=== PATIENT | male | born 1940 | race Caucasian/White ===

== ENCOUNTER 2020-05-22 14:00 | Emergency (ER) | payer OTHER, BC ==
[~2020-05-22] VITALS: Ht 182.9 cm; Wt 79.4 kg
[2020-05-22 17:50] LABS: URINE BILIRUBIN NEGATIVE (Negative); URINE BLOOD 1+ (Negative); URINE CLARITY CLEAR; URINE COLOR YELLOW; URINE GLUCOSE-RANDOM* NEGATIVE (Negative); URINE KETONES NEGATIVE (Negative); URINE LEUKOCYTES-REFLEX NEGATIVE (Negative); URINE NITRITE-REFLEX NEGATIVE (Negative); URINE PROTEIN (DIPSTICK) NEGATIVE (Negative); URINE SPECIFIC GRAVITY 1.015 (1.005-1.035); URINE UROBILINOGEN 0.2 E.U./dl (0.2-1.0)
[2020-05-22 17:51] LABS: ABSOLUTE NEUTROPHILS 5.4 thou/uL (1.4-8.2); BASOPHILS 0.5 % (0.0-2.0); EOSINOPHILS 0.7 % (0.0-3.0); HEMATOCRIT 43.2 % (42.0-52.0); HEMOGLOBIN 15.1 gm/dL (14.0-18.0); LYMPHOCYTES 15.4 % (24.0-44.0); MCH 32.7 pg (26.0-34.0); MCHC 35.1 g/dL (28.0-37.0); MCV 93.3 fL (80.0-100.0); MONOCYTES 11.1 % (1.0-8.0); PLATELET COUNT 281 thou/uL (150-400); POLYS 72.3 % (36.0-66.0); RBC 4.62 mil/uL (4.50-6.00); RDW 13.1 % (10.5-14.5); WBC 7.5 thou/uL (4.0-11.0)
[2020-05-22 18:05] LABS: AMP/METHAMP Negative (Negative); BARBITURATES Negative (Negative); BENZODIAZEPINES Negative (Negative); COCAINE Negative (Negative); METHADONE Negative (Negative); OPIATES Negative (Negative); PCP Negative (Negative)
[2020-05-22 18:05] LABS: ANION GAP 8 mmol/L (7-16); BUN 15 mg/dL (7-18); CHLORIDE 108 mmol/L (98-107); CO2 25 mmol/L (21-32); CREATININE 1.2 mg/dL (0.7-1.3); GLUCOSE 123 mg/dL (74-106); POTASSIUM 3.8 mmol/L (3.5-5.1); SODIUM 141 mmol/L (136-145)
[2020-05-22 18:09] LABS: ALBUMIN 3.6 g/dL (3.4-5.0); SALICYLATE < 2.8 mg/dL (2.8-20.0); SGOT 19 U/L (15-37); SGPT 21 U/L (16-63); TOTAL BILIRUBIN 0.4 mg/dL (0.2-1.0); TOTAL PROTEIN 6.5 g/dL (6.4-8.2)
[2020-05-22 18:14] LABS: BACTERIA-REFLEX 1-9 Few /HPF (None Seen); CASTS None Seen /LPF (None Seen); CRYSTALS None Seen /LPF (None Seen); SQUAMOUS None Seen /LPF (0-3); URINE RBC 0-2 Rare /HPF (0-2); URINE WBC-REFLEX None Seen /HPF (0-5)
[2020-05-22 18:45] VITALS: BP 128/68
[2020-05-23] MEDS ORDERED: NEXIUM20 MG PO (00:21)
[2020-05-23] MEDS ORDERED: ATIVAN0.5 M1 PO (00:21)
[2020-05-23] MEDS ORDERED: QUETIAPINE FUMA25 MG PO (00:22)
[2020-05-23] MEDS ORDERED: ZINC PICOLINAT1 EACH PO (00:23)
[2020-05-23] MEDS ORDERED: QUINAPRIL 20 MG20 MG PO (00:23)
[2020-05-23] MEDS ORDERED: FAMOTIDINE10 MG PO (00:24)
[2020-05-23] MEDS ORDERED: CELEXA 20 MG TA20 MG PO (00:24)
[2020-05-23] MEDS ORDERED: MAG GLYCINATE100 MG PO (00:25)
[2020-05-23] MEDS ORDERED: MELATONIN10 M3 PO (00:26)
--- NOTE | 2020-05-23 07:23 | EKG ---
[place] [address] [address] [facility] [place] [address] ELECTROCARDIOGRAM REPORT Name: JOSIAS MALCOLM [facility] [id number] Admission: 05/22/20 Attend Phys: Discharge: 05/22/20 Date of : 40 Report #: [id number] [facility] ED Test Date: 2020-05-22 Test Time: 16:13:17 Pat Name: JOSIAS MALCOLM Department: Room: Gender: M Moshgiach: UNK : 1940 Requested By: Ritu Phan Order Number: [id number] MD: Kirill Heck Measurements Intervals [place] Rate: 77 P: 58 [place]: 196 QRS: 44 QRSD: 98 T: 6 QT: 386 QTc: 437 Interpretive Statements Sinus rhythm Probable left atrial enlargement Left ventricular hypertrophy Baseline wander in lead(s) III,V1,V2,V5,V6 Compared to ECG 02/11/1996 20:08:00 Left ventricular hypertrophy now present Sinus bradycardia no longer present Incomplete right bundle-branch block no longer present Electronically Signed On 05-23-2020 7:23:16 ARCHERY EQUIPMENT REPAIRER by Kirill Heck [email or web address] <ELECTRONICALLY SIGNED> By: Kirill Heck MD, FACC 05/23/20 0723 1613 1613 Kirill Heck MD, FAC /EPI
== END 2020-05-22 20:45 ==
LOC: ER 14:00
PROVIDERS: Physician Assistant
DX: R45.1 Restlessness and agitation (principal); Z20.828 Contact with and (suspected) exposure to other viral communicable diseases; F03.90 Unspecified dementia, unspecified severity, without behavioral disturbance, psychotic disturbance, mood disturbance, and anxiety

== ENCOUNTER 2020-05-22 14:01 | Inpatient (IN) | payer OTHER, BC ==
[~2020-05-22] VITALS: Ht 182.9 cm; Wt 67.8 kg
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
[2020-05-23] MEDS ORDERED: NEXIUM20 MG PO (00:21)
[2020-05-23] MEDS ORDERED: ATIVAN0.5 M1 PO (00:21)
[2020-05-23] MEDS ORDERED: QUETIAPINE FUMA25 MG PO (00:22)
[2020-05-23] MEDS ORDERED: QUINAPRIL 20 MG20 MG PO (00:23)
[2020-05-23] MEDS ORDERED: ZINC PICOLINAT1 EACH PO (00:23)
[2020-05-23] MEDS ORDERED: FAMOTIDINE10 MG PO (00:24)
[2020-05-23] MEDS ORDERED: CELEXA 20 MG TA20 MG PO (00:24)
[2020-05-23] MEDS ORDERED: MAG GLYCINATE100 MG PO (00:25)
[2020-05-23] MEDS ORDERED: MELATONIN10 M3 PO (00:26)
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
--- NOTE | 2020-05-23 03:34 | NUR ---
PATIENT BECAME AGITATED SITTING IN DINING ROOM CHAIR. HE BEGAN TRYING TO GET OUT OF CHAIR AND WAS UNSTABLE DUE TO EARLIER PRN MEDS. WHEN OFFICE SERVICES REPRESENTATIVE AND NURSE TRIED TO HELP HIM GET UP OUT OF CHAIR HE BEGAN HITTING AND PUNCHING AND YELLING. PT RECIEVED A SKIN TEAR ON BACK OF RIGHT HAND FROM HITTING HIS CHAIR AND OFFICE SERVICES REPRESENTATIVE WHILE COMBATIVE. LINDA ANGELO NOTIFIED AND ORDER GIVEN FOR HALDOL 5MG IM STAT. THIS WAS GIVEN IN HIS RIGHT DELTOID WITHOUT INCIDENT. PATIENT WAS TAKEN TO BATHROOM BEFORE INJECTION AND WHEN BECOMING AGITATED BUT DID NOT VOID. PATIENT'S RIGHT HAND WAS CLEANED WITH STERILE WATER AND STERI STRIPS AND DRESSING APPLIED. PATIENT IS SITTING AT A TABLE NOW AND IS CALM. WILL CONTINUE TO MONITOR.
[2020-05-23 04:24] VITALS: BP 155/88
[2020-05-23 09:13] VITALS: BP 131/75
--- NOTE | 2020-05-23 15:13 | NUR ---
[facility]ALLY [facility]/REGUALR-VS WNL-AWAKENS EASILY TO VERBAL STIMULI,COMMANDS BUT QUICKLY FALLS BACK TO SLEEP-BREAKFAST AND AM MEDS HELD D/T SEDATION. AT APPROX 1230 GOT UP OUT OF GERICHAIR AND STARTED PACING RAPIDLY IN HALLWAYS-DID STOP BRIEFLY AND ALLOWED THIS NURSE TO PUT ON HIS SLIPPERS AND COMPLETE PHYSICAL ASSESSMENT BEFORE RESUMING PACING AGAIN.DID SIT FOR 5-10 MINUTES WITH COAXING AND QUEING TO EAT 2-3 BITES OF SANDWHICH PROVIDED AND BAG OF CHIPS-WILL OCCASSIONAL OFFERS SOME SPONTANEOUS VERBALIZATION BUT SPEECH IS MUMBLED AND SOFT-DIFFICULT TO UNDERSTAND-
[2020-05-23 20:53] VITALS: BP 115/88
[2020-05-24 09:59] VITALS: BP 128/73
[2020-05-24 10:06] VITALS: BP 128/73
--- NOTE | 2020-05-24 11:21 | NUR ---
ACCEPTED CARE OF PATIENT FROM 7P-7AM SHIFT. PT IS UP DRESSED AND WALKING SLOWLY PACING ABOUT UNIT. IS CONF TO TIME AND PLACE,WANDERING INTO ROOMS. IS EASILY REDIRECTABLE. IS ABLE TO FEED SELF AND TAKES MEDS WHOLE.NO COMBATIVE BEHAVIORS NOTED THIS AM. DENIES PAIN.PT ATTENDS AM GROUPS.
--- NOTE | 2020-05-24 17:08 | NUR ---
SW was able to speak with Pt's / DPOA, Stefanie Jennifer [phone], to complete the psychosocial assessment.
--- NOTE | 2020-05-24 17:56 | NUR ---
1700 PT HAS PACED SLOWLY MOST OF DAY. IS HARD FOR PATIENT TO SET EVEN TO EAT. PICKS AT FOOD. HAS NOT SLEPT TODAY.
[2020-05-24 20:43] VITALS: BP 121/66
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
[2020-05-25 19:22] VITALS: BP 108/65
--- NOTE | 2020-05-26 05:58 | NUR ---
ASSUMED PT'S CARE THIS PM SHIFT. ALERT AND ORIENTED TO SELF. PT WAS CALM AND COOPERATIVE WITH CARE. NO AGITATION OR AGGRESSION NOTED. PT TOOK MEDS PER EMAR. PT SLEPTS MOST OF SHIFT. DID GET UP ONE TIME IN THE MIDDLE OF THE NIGHT BUT WAS ABLE TO GET BACK IN BED WITH HELP OF NURSING. PT CONTINUES TO SLEEP IN HIS ROOM. WILL CONTINUE TO MONITOR.
--- NOTE | 2020-05-26 08:49 | NUR ---
SW sent pt updates to [facility]. SW team will continue to follow pt during his stay on this unit.
[2020-05-26 09:11] VITALS: BP 119/77
--- NOTE | 2020-05-26 11:48 | NUR ---
PT CARE ASSUMED AT 0700. A&O TO SELF. WITH CONFUSION. NONE NOTED AT THIS MOMENT. DNR. TOOK ALL MEDS WITH NO ISSUES. STOOL SAMPLE NEEDED. CALLED FOR UPDATE. PT CONTINUES TO WANDER THE HALLS AND WALKS INTO OTHER PATIENT ROOMS. EASILY REDIRECTED. WILL CONTINUE TO MONITOR.
--- NOTE | 2020-05-26 19:51 | NUR ---
ASSUMED CARE ON 05/26/20 @ 1900, SEATED IN THE DAY ROOM. TOOK OFF SHIRT AND SOCKS, ALLOWED HIMSELF TO BE REDRESSED, HIS SKIN TEAR ON THE RIGHT HAND WAS BLEEDING SLIGHTLY, AND HE ALLOWED IT TO BE CLEANED AND REDRESSED. HRRR, LUNGS CTA WITH DEEP CLEAR RESPIRATIONS BILAT, ABD N X 4Q. AMBULATING IN THE DAY ROOM WITHOUT USE OF WALKER.
[2020-05-26 20:22] VITALS: BP 135/90
[2020-05-26 22:00] VITALS: BP 135/90
[2020-05-27 07:50] VITALS: BP 127/77
[2020-05-27 11:57] VITALS: BP 127/77
--- NOTE | 2020-05-27 12:08 | NUR ---
ASSUMED CARE AT 0700 THIS MORNING. PT. IN HIS ROOM. HE IS UP AMBULATING. HE CAME ONTO THE UNIT AND WAS EXIT SEEKING. HE IS NOT REAL REDIRECTABLE. HE IS NOT A GOOD HISTORIAN AND COULD TELL ME WHEN HIS LAST BM WAS. HE TOOK HIS MORNING MEDICATIONS WITHOUT PROLEMS. HE WAS COOPERATIVE WITH MORNING ASSESSMENT. LUNGS CTA, ABDOMEN SOFT AND POSITIVE BOWEL SOUNDS X 4.
[2020-05-27 20:00] VITALS: BP 128/76
[2020-05-27 20:09] VITALS: BP 128/76
--- NOTE | 2020-05-28 00:58 | NUR ---
PATIENT HAS BEEN HAPPY TONIGHT AND PACING ALOT. HE HAS APPROACHED STAFF AND ATTEMPTED CONVERSATIONS. PATIENT PACING MORE TOWARDS BED TIME AND UNABLE TO SIT STILL FOR LONG. OLANZAPINE 5MG IM GIVEN IN LEFT DELTOID. PATIENT STATES HE IS TIRED BUT HAVE BEEN UNSUCCESSFUL OF KEEPING HIM IN RECLINER AND BED FOR MORE THAN 15 MINUTES AT A TIME. PATIENT HAS BEEN RELAXED TONIGHT BUT BECOMING MORE AGITATED EVENING WEARS ON AND PATIENT GETTING SLEEPIER. DID GET PATIENT TO DRINK 24O CC OF WATER BUT WOULD NOT DRINK PAST THAT. PATIENT HAS DRESSING ON RIGHT HAND FROM OLD SKIN TEAR. IT IS DRY AND INTACT. PATIENT DENIES PAIN. ABDOMEN SOFT AND NON TENDER WITH ACTIVE BOWEL SOUNDS. LUNGS CTA BILATERALLY. HEART S1S2 HEARD. CONTINUING TO MONITOR.
--- NOTE | 2020-05-28 02:04 | NUR ---
PATIENT STILL AGITATED AFTER OLANZAPINE INJECTION. PALPATED BLADDER AND WITH SOME DISTENTION THIS TIME. BLADDER SCANNED PATIENT HE BATTLED ME. 647CC SCANNED. CALLED AND RECEIVED ORDER TO STRAIGHT CATH ONE TIME BY LINDA MONTEZ. WITH 4 PEOPLE WAS ABLE TO CALM PATIENT DOWN ENOUGH TO CATH. OUTPUT 750CC. CALLED AND RECEIVED ORDER TO SEND URINE TO LAB FOR UA AND GENERAL SURGERY PHYSICIAN ASSISTANT IF INDICATED. SPECIMAN COLLECTED AT 0145 AND TAKEN TO LAB AT O155. LINDA MONTEZ IS REVIEWING CHART AND MAY DECIDE TO START PT ON FLOMAX FOR URINE RETENTION. PATIENT SHOWED MUCH RELIEF AND RELAXATION AFTER STRAIGHT CATHING THE LARGE VOLUME OF URINE. PATIENT PLACED BACK IN DAVON CHAIR AND SITTING BY IMPLEMENTATION COORDINATOR IN DINING ROOM WITH LAP LOVELY IN PLACE AND FASTENED IN THE FRON. PATIENT IS STILL RESTLESS IN CHAIR BUT CALM. CONTINUING TO MONITOR.
[2020-05-28 03:35] LABS: URINE BILIRUBIN NEGATIVE (Negative); URINE BLOOD NEGATIVE (Negative); URINE CLARITY CLEAR; URINE COLOR YELLOW; URINE GLUCOSE-RANDOM* NEGATIVE (Negative); URINE KETONES NEGATIVE (Negative); URINE LEUKOCYTES-REFLEX NEGATIVE (Negative); URINE NITRITE-REFLEX NEGATIVE (Negative); URINE PROTEIN (DIPSTICK) NEGATIVE (Negative); URINE SPECIFIC GRAVITY >= 1.030 (1.005-1.035); URINE UROBILINOGEN 0.2 E.U./dl (0.2-1.0)
--- NOTE | 2020-05-28 05:27 | NUR ---
PATIENT DID CALM A COUPLE OF HOURS AFTER INJECTION. HE SLEPT IN DAVON CHAIR IN DINING ROOM FOR A FEW HOURS. PT SITTING QUIETLY NOW. STILL FIDGETY BUT NO NEGATIVE BEHAVIORS.
[2020-05-28 07:55] VITALS: BP 99/52
--- NOTE | 2020-05-28 10:24 | NUR ---
Care assumed of patient at 0715: Patient resting in baljit chair at start of shift. Pleasantly confused. Alert and oriented to person only. Flat affect, calm and cooperative. Declined breakfast this AM. Took AM medication crushed without difficulty. Denies pain and discomfort. No behaviors indicative of SI/HI/AH/VH. Denies depression/anxiety. No agitation or combative behaviors observed thus far this AM.
--- NOTE | 2020-05-28 11:34 | NUR ---
Phone call from the patient's . She shared that Pepe has been a devote [employer] all of his life. I asssured her I would get him listed as Congregational and alert our Porter Bath.
--- NOTE | 2020-05-28 12:58 | EKG ---
[address] [place] [address] ELECTROCARDIOGRAM REPORT Name: JOSIAS MALCOLM Room #: 528A-A ADM IN M.R.#: [id number] Admission: 05/22/20 Attend Phys: Omer Millan DO Discharge: Date of : 40 Report #: [id number] [facility] Test Date: 2020-05-28 Test Time: 12:25:12 Pat Name: JOSIAS MALCOLM Department: Room: 528A A Gender: M Embedded Linux Engineer: Светлана GARAY : 1940 Requested By: Xochitl Olmos Order Number: [id number] MD: Kirill Heck Measurements Intervals [place] Rate: 51 P: 31 [place]: 198 QRS: -39 QRSD: 93 T: -28 QT: 462 QTc: 426 Interpretive Statements Sinus rhythm Atrial premature complex Consider left atrial enlargement Left axis deviation Compared to ECG 05/22/2020 16:13:17 Atrial premature complex(es) now present Left-axis deviation now present Left ventricular hypertrophy no longer present Electronically Signed On 05-28-2020 12:58:14 PICTURE ENGRAVER by Kirill Heck [email or web address] <ELECTRONICALLY SIGNED> By: Kirill Heck MD, FACC 05/28/20 1258 1225 1225 Kirill Heck MD, FACC /EPI
[2020-05-28 14:39] LABS: ABSOLUTE NEUTROPHILS 5.2 thou/uL (1.4-8.2); BASOPHILS 0.4 % (0.0-2.0); EOSINOPHILS 0.9 % (0.0-3.0); HEMATOCRIT 43.4 % (42.0-52.0); HEMOGLOBIN 14.5 gm/dL (14.0-18.0); LYMPHOCYTES 16.7 % (24.0-44.0); MCH 31.6 pg (26.0-34.0); MCHC 33.4 g/dL (28.0-37.0); MCV 94.6 fL (80.0-100.0); MONOCYTES 9.8 % (1.0-8.0); PLATELET COUNT 274 thou/uL (150-400); POLYS 72.2 % (36.0-66.0); RBC 4.59 mil/uL (4.50-6.00); RDW 13.5 % (10.5-14.5); WBC 7.2 thou/uL (4.0-11.0)
[2020-05-28 14:49] LABS: CALCIUM 9.5 mg/dL (8.5-10.1); MAGNESIUM 2.2 mg/dL (1.8-2.4); POTASSIUM 3.7 mmol/L (3.5-5.1)
[2020-05-28 19:27] VITALS: BP 99/56
[2020-05-28 20:00] VITALS: BP 99/56
--- NOTE | 2020-05-28 21:48 | NUR ---
PATIENT WAS SITTING IN DAVON CHAIR WHEN I CAME ON DUTY AT 1900. PATIENT GETTING COMBATIVE WITH STAFF TRYING TO TAKE HIS VITALS. PATIENT RESTLESS AND IRRITABLE. PATIENT CALMED AFTER VITALS TAKEN BUT RESTLESS. GOT PATIENT UP AND WALKED HIM IN THE HALLWAY. PATIENT IS LEANING TO THE RIGHT WHEN HE WALKS. WAS UNSUCCESSFUL IN TRYING TO TOILET THE PATIENT. PATIENT RESPONDING TO PAIN IN LEFT HAND WRIST AREA WHEN HAND IS PULLED ON OR HELD ON TO. TYLENOL 650MG PO GIVEN FOR PAIN 5/ 10. ATIVAN 1MG PRN GIVEN TO PATIENT AND SAT BACK IN DAVON CHAIR WITH LAP LOVELY COMFORTABLY SECURED AND FASTENED IN THE FRONT. PATIENT HAD ICE CREAM AND VISHNU CRACKERS FOR SNACK TONIGHT AND DID DRINK 240CC WATER. PATIENT SITTING QUIETLY IN DINING ROOM NEXT TO COLOR TESTER. HIS CALLED TO CHECK ON PATIENT STATUS. PATIENT IN LOCKED GERICHAIR WITH CHAIRALARM ON. CONTINUING TO MONITOR.
--- NOTE | 2020-05-29 04:44 | NUR ---
PATIENT WAS ASSISTED TO BED AROUND 1230 AM AND HAS BEEN SLEEPING SINCE. BED IN LOW POSITION AND BED ALARM IS ON. NORMAL RESPIRATIONS AND UNLABORED, EVEN BREATHS. ROUTINE ROUNDS TO ASSESS SAFETY AND STATUS OF PATIENT. CONTINUING TO MONITOR.
[2020-05-29 07:30] VITALS: BP 121/71
--- NOTE | 2020-05-29 08:39 | NUR ---
RT Progress Note- Remi has been minimally active in the milieu and recreation groups. He is usually seen seated in baljit chair, often asleep. However, when patient is awake and alert he is difficult to engage and wanders about unit. Remi has not shown aggression during interactions with recreation staff. ACCOUNTING PROFESSIONAL will continue to provide opportunities for engagement while patient is on unit.
[2020-05-29 10:00] VITALS: BP 99/56
--- NOTE | 2020-05-29 19:30 | NUR ---
ASSUMED PATIENT CARE AT 0700. PATIENT WAS RESTING ON THE GERICHAIR IN THE DAY ROOM. PATIENT REFUSED BREAKFAST. PATIENT WAS CALM WITH MEDICATION. AFTER BREAKFAST STAFF REPORTED THAT PATIENT WAS AGGRESSIVE TO THEM AND WAS HITTING. WRITTER SAT AND OBSERVED PATIENT FOR 15 MINUTES BY REDUCING STIMULATION WELL, PATIENT WAS CALM DURING THE OBSERVATION. FEW MINUTES LATER PATIENT WAS GETTING OUT OF HIS CHAIR. PATIENT GOT PRN OLANZAPINE AT 1155 ON DELTOID MUSCLE . PATIENT WAS ALERT AND ORIENTED X1 TODAY. AFTER DINNER PATIENT BECAME AGGRESSIVE WITH STAFF, HE WAS HITTING AND SCRATCHING STAFF WITH HIS FINGER NAILS. PATIENT GOT PRN OLANZAPINE AT 1814 ON HIS VASTUS LATERALIS. PATIENT WAS PUT IN BED, WHICH HE TRIED TO GET OUT OF BED. PATIENT GAIT WAS VERY UNSTEADY, HE WAS ASSISTED BY STAFFS TO THE GERICHAIR. PATIENT WAS TRANSPORTED TO THE DAY ROOM. WE ARE CONTINUING TO MONITOR PATIENT. post aggression patient have skin tear on his right arm.
[2020-05-29 19:35] VITALS: BP 127/75
--- NOTE | 2020-05-29 20:14 | NUR ---
Alert and orientated to name only. No speech suggestive of SI/HI. Spent most of day in gerichair with lapbuddy in place. Breath sounds clear and shallow, no s/o resp distress. Reg HR auscultated. Color pink with brisk capillary refill and palpable peripheral pulses. Olanzapine 2.5mg given IM X2. Very combative at approximately 1815, currently sitting in chair quiet but awake. Multiple scabs and bruises over arms.
--- NOTE | 2020-05-30 02:52 | NUR ---
Assumed care on 05/29/20 @ 19:15. Seated in the day room in a baljit chair. Seemed anxious and fiddling with his lap rony, but did not seem to be able to understand how to unfasten it. Allowed his assessment to be done, HRRR Lungs CTA but with normal respirations, did not understand request to breath deeply. ABD N x 4Q. Took meds crushed in yogart. Lorazepam 1mg provided for anxiety, Trazadone 50mg and Melatonin 5mg provided for insomnia, Tylenol 650mg provided for general pain. called @ 2300 and spoke for about 30 minutes asking for update. Medications explained and low and slow medication explained. Asks to have Dr. Millan call and speak to her after he sees patient today. Sleeping at this time, bed in low position, bed alarm set. Rounding as per unit protocol.
[2020-05-30 04:16] VITALS: BP 127/75
[2020-05-30 08:15] VITALS: BP 142/88
[2020-05-30 09:08] VITALS: BP 142/88
[2020-05-30 19:11] VITALS: BP 122/74
--- NOTE | 2020-05-30 19:11 | NUR ---
ASSUMED PATIENT CARE AT 0730. PATIENT WAS IN THE DAY ROOM, RESTING IN THE GERICHAIR. PATIENT VITAL SIGNS WERE STABLE, HE WAS ALERT AND ORIENTED X1. PATIENT AMBULATE WITH AN UNSTEADY GAIT. PATIENT ATE ALL MEALS. PATIENT WAS UNCOOPERATIVE WITH MEDICATION AND CARE. PATIENT WAS COMBATIVE, AGGRESSIVE, HE WAS HITTING AND SCRATCHING STAFF. PATIENT GOT OLANZAPINE 2.5MG AT 1306. PATIENT CONTINUED TO BE AGGRESSIVE TOWARDS STAFF. DR FITZPATRICK WAS CALLED AND SHE ORDERED DIPHENHYDRAMINE 25MG TAB. AT 1506 PATIENT WAS GIVEN DIPHENHYDRAMINE 25MG TAB. AFTER DINNER PATIENT CONTINUED WITH COMBATIVENESS. HE SCRATCHED A STAFF ON HER ARM AND IT REULTED TO A LITTLE BRUISE. PATIENT WAS GIVEN ATIVAN, LORAZEPAM 1MG AT 1724.
--- NOTE | 2020-05-31 05:31 | NUR ---
Assumed care of pt @ 1900. Pt calm et cooperative most of shift. Took medications crushed in pudding without difficulty. Ambulates with assistance of gerichair. VSWNL. Health assessment with no abnormalities noted at present time. Unable to assess SI/HI/AVH due to cognitive deficit but pt does not demonstrate any signs or symptoms of acute emotional distress at present time. Pt became agitated, restless in chair, scratching and kicking at staff when attempting cares. Pt was given Olanzapine 2.5mg IM at 2212. Medication was effective in calming pt so that he could rest. Currently resting in [facility] in dayroom with eyes closed. Will continue to monitor per unit protocol.
[2020-05-31 09:48] VITALS: BP 132/67
[2020-05-31 10:42] VITALS: BP 132/67
--- NOTE | 2020-05-31 10:50 | NUR ---
ASSUMED CARE AT 0700 THIS MORNING. PT. WAS ASLEEP IN A RECLINGING. PT. WAS NEEDING CLEANED UP. HE WAS TAKEN TO HIS ROOM AND CLEANED UP. A BRIEF AND PANTS WERE PUT ON THE PT. HE BECAME COMBATIVE JUST A BIT WHILE CLEANING HIM. HE BECAME COOPERATIVE AND WAS HELPFUL. HE HAS BEEN ASLEEP MOST OF THE MORNING. HE WAS WAKEN UP FOR BREAKFAST, BUT HE STARTED YELLING, FLAILING HIS ARMS AND REFUSED TO EAT. HE DID TAKE HIS MORNING MEDICATIONS CRUSHED IN APPLESAUCE WITH MUCH DIFFICULLTY AND EFFORT. HE DID EVENTUALLY TAKE THE MEDICATIONS.
[2020-05-31 16:08] LABS: CALCIUM 9.3 mg/dL (8.5-10.1); POTASSIUM 3.6 mmol/L (3.5-5.1)
[2020-05-31 20:29] VITALS: BP 123/57
--- NOTE | 2020-06-01 05:49 | NUR ---
Assumed care of pt @ 1900. Pt calm et cooperative this shift. Took medications crushed in pudding without difficulty. Ambulates with assistance of gerichair. VSWNL. Health assessment with no abnormalities noted at present time. Unable to assess SI/HI/AVH due to cognitive deficit but pt does not demonstrate any signs or symptoms of acute emotional distress at present time. [facility] with eyes closed. Will continue to monitor per unit protocol.
[2020-06-01 06:08] LABS: ALBUMIN 3.2 g/dL (3.4-5.0); CALCIUM 9.1 mg/dL (8.5-10.1); CREATININE 0.8 mg/dL (0.7-1.3); POTASSIUM 3.7 mmol/L (3.5-5.1); TOTAL BILIRUBIN 0.8 mg/dL (0.2-1.0)
[2020-06-01 07:30] VITALS: BP 107/67
[2020-06-01 10:00] VITALS: BP 107/67
--- NOTE | 2020-06-01 17:44 | NUR ---
ASSUMED PATIENT CARE AT 0700. PATIENT WAS IN THE DAY ROOM SLEEPING. PATIENT WAS ALERT AND ORIENTED X1.PATIENT VITAL SIGNS WERE STABLE HE WAS DROWSY MOST PART OF DAY. PATIENT WAS UNABLE TO TAKE HIS MEDICATION BECAUSE HE WAS SLEEPING. EVERY ATTEMPT TO GET HIM TO EAT AND TAKE HIS MEDICATION WAS ABORTIVE. AT NOON PATIENT WAS UNABLE TO EAT LUNCH HE WAS SLEEPING. PATIENT WOKE AT 1400, HE HAD A TEMPERATURE OF 99.3 AND HE COUGHED A LITTLE. PATIENT CONDITION WAS REPORTED TO DR AFITH, SHE INSTRUCTED WE KEEP MONITORING PATIENT. AT 1430, PATIENT DRANK WATER AND ENSURE (FOOD SUPPLEMENT). PATIENT WAS COOPERATIVE WITH CARE. FROM 1410 PATIENT HAVE NOT COUGHED AND HIS TEMPERATURE WAS TAKEN AT 1530 AND IT WAS 98.2. AT 1700 PATIENT REFUSED DINNER, HE DRANK WATER AND ENSURE. WILL KEEP MONITORING PATIENT. PATIENT SLEPT ALL DAY
[2020-06-01 19:20] VITALS: BP 115/78
[2020-06-02 07:10] VITALS: BP 127/78
[2020-06-02 10:21] VITALS: BP 127/78
--- NOTE | 2020-06-02 13:45 | NUR ---
SW sent updates to [facility]. SW team will continue to follow.
--- NOTE | 2020-06-02 16:00 | NUR ---
Assumed patient care at 0700. Patient was alert and oriented to self. patient vitals signs were stable. Patient rested in the gerichair most of the day. patient ate 100% of breakfast and 85% of lunch. patient got assistance with feeding. patient was combative with care and medication administration. patient continously takes his cloths of and attempts to put them back on. patient took his medication crushed with yogurt. there were no signs and symptoms of SI/HI noted patient is currently resting on the gerichair.
[2020-06-02 19:10] VITALS: BP 127/71
--- NOTE | 2020-06-03 00:28 | NUR ---
Assumed care on 06/02/20 @ 19:15, seated in baljit chair in day room. Restless and repeatedly disrobes. Redressed and soon disrobes again. Scheduled meds and prn meds given @ 20:30. Incontinent of urine. Wets in brief, have not been able to collect a urine sample. Scabs noted to lower extremities, dressings covering skin tears on forearms c/d/i. Able to give first name A&Ox1, unable to answer mental health assessment questions. Cooperated with physical assessment, VSS, HRRR, Lungs CTA ABD N x 4Q. Last reported BM 05/31/20. Took meds crushed in yogart, however refused apple juice. Will continue to round as per unit protocol for safety and comfort.
[2020-06-03 00:36] VITALS: BP 127/71
[2020-06-03 05:53] LABS: HEMATOCRIT 43.5 % (42.0-52.0); HEMOGLOBIN 14.4 gm/dL (14.0-18.0); MCH 31.7 pg (26.0-34.0); MCHC 33.2 g/dL (28.0-37.0); MCV 95.7 fL (80.0-100.0); RBC 4.55 mil/uL (4.50-6.00); RDW 13.7 % (10.5-14.5)
[2020-06-03 06:12] LABS: ALBUMIN 2.8 g/dL (3.4-5.0); CALCIUM 9.3 mg/dL (8.5-10.1); CREATININE 0.8 mg/dL (0.7-1.3); POTASSIUM 3.7 mmol/L (3.5-5.1); TOTAL BILIRUBIN 0.7 mg/dL (0.2-1.0); TOTAL PROTEIN 6.2 g/dL (6.4-8.2)
[2020-06-03 07:35] VITALS: BP 144/81
--- NOTE | 2020-06-03 09:19 | NUR ---
Care assumed of patient at 0715: Patient seated in baljit chair at start of shift. Alert and oriented to person only. Denies SI/HI/AH/VH. Pleasantly confused. Restless at times. Denies depression and anxiety. Incontinent of bladder. Required max assist x2 for gladys care and linen change due to poor balance while standing. Denies pain and discomfort. Fed breakfast by staff. Was able to report what he wanted to eat and when he was done. Took AM meds crushed without difficulty. Seated quietly in dayroom at this time.
[2020-06-03 15:04] LABS: URINE BILIRUBIN NEGATIVE (Negative); URINE BLOOD 2+ (Negative); URINE COLOR YELLOW; URINE GLUCOSE-RANDOM* NEGATIVE (Negative); URINE KETONES 1+ (Negative); URINE LEUKOCYTES TRACE (Negative); URINE NITRITE POSITIVE (Negative); URINE PROTEIN (DIPSTICK) 1+ (Negative); URINE SPECIFIC GRAVITY 1.025 (1.005-1.035)
[2020-06-03 15:06] LABS: URINE CLARITY HAZY
[2020-06-03 15:13] LABS: BACTERIA >30 Many /HPF (None Seen); SQUAMOUS None Seen /LPF (0-3); URINE RBC 3-10 Few /HPF (0-2); URINE WBC 6-15 Few /HPF (0-5)
[2020-06-03 15:14] LABS: CASTS None Seen /LPF (None Seen); CRYSTALS None Seen /LPF (None Seen)
--- NOTE | 2020-06-03 16:13 | NUR ---
Updates faxed to [facility] [phone]
[2020-06-03 19:37] VITALS: BP 93/72
[2020-06-03 21:42] VITALS: BP 93/72
--- NOTE | 2020-06-04 01:49 | NUR ---
PATIENT HAS BEEN UP IN MAIN DINING ROOM IN A DAVON CHAIR SINCE ASSUMED CARE AT 1900. INCONTINENCE CHECKS DONE ON REGULAR BASIS. PATIENT HEAD AND BODY LEANING TO THE RIGHT. PILLOW PLACED SEVERAL TIMES UNDER HEAD BUT DOES NOT STAY. PATIENT APPEARS TO BE SLEEPING MOST OF NIGHT BUT DOES AWAKEN FOR SHORT SPURTS AND IS RESTLESS. PATIENT NOT STAYING IN BED SO IS RECLINING IN DAVON CHAIR. WHEELS LOCKED AND CHAIR ALARM IN PLACE. PATIENT HAS SKIN TEARS ON BILATERAL ARMS AND WAS REPORTED THAT HE WAS BITING HIS ARMS AND HIS RIGHT KNEE YESTERDAY WHEN COMBATIVE WITH INCONTINENCE CARES. PATIENT TOOK TRAZADONE AT HS WITH THICKENED WATER. WAS ABLE TO GET HIM TO DRINK 60CC OF HONEY THICKENED WATER. LUNGS ARE DIMINISHED BILATERALLY WITH OCCASIONAL EXPIRATORY WHEEZE. NO SIGNS OF AVH/SI/HI. CONTINUED ROUNDS TO ASSESS SAFETY AND STATUS OF PATIENT. CONTINUING TO MONITOR.
[2020-06-04 05:24] LABS: HEMATOCRIT 43.6 % (42.0-52.0); HEMOGLOBIN 14.2 gm/dL (14.0-18.0); MCH 31.1 pg (26.0-34.0); MCHC 32.5 g/dL (28.0-37.0); MCV 95.6 fL (80.0-100.0); RBC 4.56 mil/uL (4.50-6.00); RDW 13.4 % (10.5-14.5); WBC 13.6 thou/uL (4.0-11.0)
[2020-06-04 05:42] LABS: CREATININE 0.9 mg/dL (0.7-1.3); POTASSIUM 3.5 mmol/L (3.5-5.1)
[2020-06-04 08:20] VITALS: BP 120/67
--- NOTE | 2020-06-04 08:31 | NUR ---
PT IN DAVON CHAIR THIS AM. PT HAS LAP LOVELY FOR FALL PROTECTION. PT DOES ANSWER QUESTIONS IF ASKED. PT HAS SCRATCHES TO LOWER LEGS AND DRESSING TO RT FA. PT NEEDS ASSISTANCE WITH FEEDING. PT EATS WITHOUT ANY ISSUES. HAD DRY COUGH THIS AM. LUNGS CLEAR, DIMINISHED TO BASES. PT TAKES MEDS CRUSHED IN APPLESAUCE. SPEECH THERAPY HERE TO EVAL HIS SWALLOWING AT BEDSIDE. REC. MECH CHOPPED AND THIN LIQUIDS.
[2020-06-04 09:38] VITALS: BP 120/67
--- NOTE | 2020-06-04 11:38 | NUR ---
PT TRYING TO GET OUT OF CHAIR. NOTICED HEAD IS TILTED TO RT. PT ENCOURAGED TO GET BACK IN CHAIR. PT STATED HE NEEDED TO TALK TO SOMEONE. PT PUT PULLED BACK INTO DAVON CHAIR AND LAP LOVELY, PT TOOK OFF LAP LOVELY WHILE IN CHAIR.
--- NOTE | 2020-06-04 15:30 | NUR ---
PT TRANSFERED TO BED AND CHANGED INCON. BRIEF. HE WAS COMPLAINING OF PAIN WHEN TRYING TO LAY DOWN, THIS PHARMACEUTICAL REPRESENTATIVE RUBBED HIS RT SIDE OF NECK THAT FELT TIGHT. PT ABLE TO LAY HEAD DOWN ON PILLOW AND REST. BED ALARM ON.
--- NOTE | 2020-06-04 16:30 | NUR ---
PT RESTED AN HOUR, PT TRYING TO GET UP OUT OF BED AT THIS TIME. TRANSFERED PT TO DAVON CHAIR X2 PERSON. PT ABLE TO BEAR WEIGHT ON FEET FOR TRANSFER, JUST SEEMS SCARED OF TRANSFER BY YELLING OUT AND GRABBING. APPLIED LAP BAND FOR FALL PROTECTION.
[2020-06-04 19:08] VITALS: BP 116/62
--- NOTE | 2020-06-05 05:25 | NUR ---
Assumed care of patient this pm shift. Patient is confused. Affect is variable. Patient does not appear to have hi/si. Alert and oriented to self only at this time. Patient takes medications crushed in yogurt or pudding. Med adherent. Patient is considered a falls risk, precautions in place. Assessment shows no signs of acute distress. Patient has been restless throughout the night. Patient was assisted to bed but was moved back to the baljit chair so staff could watch him because he was crawling out of bed. We will continue to monitor per hospital policy.
[2020-06-05 07:25] VITALS: BP 127/73
--- NOTE | 2020-06-05 10:46 | NUR ---
1045 RESUMMED CARE FROM OVERNIGHT SHIFT THIS AM, PATIENT IN DAY ROOM QUIET. PATIENT ORIENTED TO SELF ONLY PATIENT DENIES SI/HI/AH/VH AT PRESENT. PATIENT CALM COOPERATIVE PATIENTS ABDOMEN SOFT FLAT BOWEL SOUNDS PRESENT. PATIENTS LUNGS CLEAR PATIENT ATE BREAKFAST TOOK MEDICATION WITHOUT INCIDENCE. WILL CONTINUE TO MONITOR PATIENT FOR SAFETY AND BEHAVIORS.
[2020-06-05 19:35] VITALS: BP 124/69
--- NOTE | 2020-06-05 23:36 | NUR ---
PATIENT WAS SITTING UP IN DAVON CHAIR RECLINER IN DINING ROOM WHEN I CAME ON DUTY AT 1900. HE WAS CALM BUT RESTLESS. WITH HELP OF CLEANING SUPERVISOR TOOK PATIENT TO ROOM AT 1930 FOR INCONTINENCE CARES AND PLACED PATIENT IN BED. PATIENT CRIES OUT WHEN TRYING TO STRAIGHTEN NECK. HIS NECK IS LEANING TOWARD RIGHT SIDE. TYLENOL 650MG PO GIVEN WITH HS MEDS A LITTLE BEFORE 1999. PATIENT WAS FED AND ATE ALL HIS PUDDING FOR HS SNACK AND DRANK A FULL CUP OF THICKENED WATER. HS MEDS WERE CRUSHED AND PUT IN PUDDING. PATIENT IS NOT WANTING TO STAY DRESSED. HE DISROBES CONSTANTLY. PATIENT HAS KEPT HIS BRIEF ON SO FAR TONIGHT. HE CURRENTLY IS SLEEPING IN HIS BED. RESPIRATIONS ARE EVEN AND UNLABORED, LCTA BILATERALLY AND DIMINISHED IN BASES. NO COUGH NOTED. VSS. PATIENT IN PLEASANT AND HAPPY MOOD THIS EVENING. PATIENT IS CALM AND COOPERATIVE WITH CARES. NO SIGNS OF SI/HI/AVH. BED IN LOW POSITION AND BED ALARM IS ON. SIDERAILS UP X 4 FOR SAFETY. ROUTINE ROUNDS TO ASSESS STATUS AND SAFETY OF PATIENT.
--- NOTE | 2020-06-06 02:39 | NUR ---
PATIENT LIGHTLY MOANING IN HIS SLEEP AND LEGS RESTLESS. PATIENT GIVEN TYLENOL 650MG PO AND BENADRYL 25MGPO FOR GENERALIZED PAIN AND RESTLESS AGITATION. PILLS WERE CRUSHED IN PUDDING. PATIENT STATES HE IS COLD WHEN ASKED ALSO. EXTRA BLANKET PLACED AND ROOM TEMP TURNED UP. REPOSITIONED PATIENT IN BED AND INCONTINENCE CARE DONE. PATIENT RESTING WITH EYES CLOSED. BED IN LOW POSITION AND BED ALARM IS ON.
--- NOTE | 2020-06-06 05:45 | NUR ---
PATIENT CONTINUES TO TILT HEAD TO THE RIGHT. PATIENT MOANS AND CRIES OUT WHEN TRYING TO TURN HIM DUE TO HURTS HIS HEAD AND NECK. TYLENOL 650MG PO GIVEN TWICE THRU NIGHT TO TRY AND HELP WITH PAIN. INCONTINENCE CARES DONE NEEDED THRU NIGHT AND NEW BEDDING APPLIED D/T INCONTINENCE. PATIENT DID NOT WANT TO GET UP YET FOR THE DAY. PATIENT BACK TO SLEEP. BED IN LOW POSITION AND BED ALARM IS ON. LABS DRAWN THIS MORNING AT 0445. PATIENT WAS COOPERATIVE AND WENT BACK TO SLEEP AFTER LAB DRAWN. CONTINUING TO MONITOR.
[2020-06-06 06:03] LABS: HEMATOCRIT 39.2 % (42.0-52.0); MCH 31.5 pg (26.0-34.0); MCHC 33.1 g/dL (28.0-37.0); MCV 95.2 fL (80.0-100.0); RBC 4.12 mil/uL (4.50-6.00); RDW 13.3 % (10.5-14.5); WBC 10.6 thou/uL (4.0-11.0)
[2020-06-06 06:13] LABS: CALCIUM 8.6 mg/dL (8.5-10.1); CREATININE 0.9 mg/dL (0.7-1.3); POTASSIUM 3.5 mmol/L (3.5-5.1)
[2020-06-06 09:17] VITALS: BP 138/87
--- NOTE | 2020-06-06 15:38 | NUR ---
Alert and orientated to name only. Some confused speech. No speech/behavior suggestive of SI/HI. Lying quietly in chair with lap rony fastened in front for most of afternoon. Up ambulating with assistance of TOOL DRESSER, drinking thickened fluids independently. Increasingly restless, Olanzapine 2.5 mg given PO per PRN order. Breath sounds clear, to radiology at 1000 for AM swallow study, per ST revealed aspiration with liquids, changed to nectar thick fluids. Reg HR auscultated. Color pink with brisk capillary refill and palpable peripheral pulses. Incontinent of large amt yellow urine, changed. Active bowel sounds over soft, flat abdomen. Encouraging fluids. Multiple scabs and bruises over arms, cleaned. 1.5 cm skin tear to L forearm, cleaned with NS and betadine, steristrips applied.
[2020-06-06 19:11] VITALS: BP 94/56
--- NOTE | 2020-06-07 05:19 | NUR ---
Assumed care of pt @ 1900. Pt calm et cooperative this shift. Took medication crushed in pudding without difficulty. Ambulates with assistance of gerichair. VSWNL. Health assessment with no abnormalities noted at present time. Unable to assess SI/HI/AVH due to cognitive deficit but does not demonstrate any signs or symptoms of acute emotional distress at present time. Socialized in dayroom with peers until HS. Currently resting in bed with eyes open. Will continue to monitor per unit protocol.
[2020-06-07 07:00] VITALS: BP 178/96
[2020-06-07 10:40] VITALS: BP 178/96
--- NOTE | 2020-06-07 10:47 | NUR ---
ASSUMED CARE AT 0700 THIS MORNING. PT. UP IN RECLINGING CHAIR IN THE DINING ROOM. HE IS WAKE, ALERT. HE REMAINS VERY CONFUSED, BUT WILL ANSWER TO HIS OWN NAME. HE TOOK HIS MORNING MEDICATIONS CRUSHED IN PUDDING. HE NEEDS TO BE FED BY STAFF BUT EATS WELL. HE IS NOT TAKING IN FLUIDS WELL. ABOUT 60 CC'S FOR BREAKFAST. HE WAS TAKEN TO HIS ROOM TO HAVE HIS BRIEF CHANGED. HE WAS KICKING AND HITTING AT STAFF DURING THIS PROCESS. AFTER BEING CHANGED, HE WAS LESS FIDGITY IN HIS CHAIR.
[2020-06-07 19:23] VITALS: BP 116/70
[2020-06-08 05:36] LABS: HEMATOCRIT 40.5 % (42.0-52.0); MCH 30.6 pg (26.0-34.0); MCV 95.8 fL (80.0-100.0); RBC 4.23 mil/uL (4.50-6.00); RDW 13.3 % (10.5-14.5); WBC 12.3 thou/uL (4.0-11.0)
[2020-06-08 05:55] LABS: CALCIUM 8.6 mg/dL (8.5-10.1); CREATININE 0.9 mg/dL (0.7-1.3); POTASSIUM 3.7 mmol/L (3.5-5.1)
--- NOTE | 2020-06-08 06:00 | NUR ---
Assumed care of pt @ 1900. Pt calm et cooperative this shift. Took medications crushed in pudding without difficulty. Ambulates with assistance of gerichair. VSWNL. Health assessment with no abnormalities noted at present time. Unable to assess SI/HI/AVH due to cognitive deficit but pt does not demonstrate any signs or symptoms of acute emotional distress at present time. Currently resting in bed with eyes closed. Will continue to monitor per unit protocol.
--- NOTE | 2020-06-08 09:20 | NUR ---
RESTLESS UPON INITIAL ASSESSMENT AT 0730 [facility] REM[facility] LAP BELT WOULD WALK SHORT DISTANCES ACCOMPNIED BY STAFF BUT IS VERY UNSTEADY LEANING HEAVILY ON STAFF FOR SUPPORT-TOILETED AND BECAME COMBATIVE WITH INCONTINENT CARE. DID EAT BREAKFAST WITH ASSIST OF STAFF AND TOOK 1 BITE OF MEDS BEFORE BEGAN SPITTING OUT ON TABLE IN DAYROOM-MEDS ARE CRUSHED AND IN APPLESAUCE WILL NOT TAKE WHOLE) REMAINS RESTLESS REMVING PANTS AND DISROBING IN AM EXERCISE GROUP-ATTEMPTED TO GIVE PO ZYPREXA CRUSHED BUT CLENCHES JAW STATING ANGRI;LY "YOU ARE TRYING TO KILL ME" ZYPREXA 2.5MG IM IN LEFT DELTOID AT APPROX 0920-PLACED CLOSE TO NURSES STATION WITHIN EYESITE OF RN FOR CONSTANT MONITORING AND DISRUPTION TO GROUP ACTIVITY.
[2020-06-08 09:43] VITALS: BP 122/75
[2020-06-08 19:30] VITALS: BP 122/66
--- NOTE | 2020-06-09 05:24 | NUR ---
Assumed care of pt @ 1900. Pt calm et cooperative this shift. Took medications crushed in pudding without difficulty. Ambulates with assistance of gerichair. VSWNL. Health assessment with no abnormalities noted at present time. Unable to assess SI/HI/AVH due to cognitive deficit but pt does not demonstrate any signs or symptoms of acute emotional distress at present time. [facility]. Will continue to monitor per unit protocol.
[2020-06-09 06:07] LABS: HEMATOCRIT 40.2 % (42.0-52.0); HEMOGLOBIN 13.4 gm/dL (14.0-18.0); MCH 31.8 pg (26.0-34.0); MCHC 33.3 g/dL (28.0-37.0); MCV 95.4 fL (80.0-100.0); RBC 4.21 mil/uL (4.50-6.00); RDW 13.4 % (10.5-14.5); WBC 12.7 thou/uL (4.0-11.0)
[2020-06-09 06:14] LABS: CALCIUM 9.1 mg/dL (8.5-10.1); CREATININE 0.9 mg/dL (0.7-1.3); POTASSIUM 3.5 mmol/L (3.5-5.1)
[2020-06-09 08:05] VITALS: BP 103/61
[2020-06-09 11:06] VITALS: BP 108/61
--- NOTE | 2020-06-09 12:12 | NUR ---
1210 RESUMMED CARE FROM OVERNIGHT SHIFT THIS AM, PATIENT DAVON CHAIR IN DAYROOM SLEEP. PATIENT ORIENTED TO SELF ONLY PATIENTS ABDOMEN FLAT BOWEL SOUNDS PRESENT. PATIENTS LUNGS CLEAR PATIENT WAS COMBATIVE THIS AM WHEN DOING HYGIENE HITTING STAFF. I HAD TO GIVE PATIENT BENADRYL 25 MG IM TO GET PATIENT CALM. PATIENT IS UNABLE TO TELL ME ABOUT SI/HI/AH/VH DUE TO BEIG NON VERBAL. STAFF ALTERNATES PATIENT FROM BED TO DAVON CHAIR AND REPOSTIONS PATIENT TO HELP KEEP BEDSORES AT BAY. WILL CONTINUE TO MONITOR PATIENT FOR SAFETY AND BEHAVIORS.
--- NOTE | 2020-06-09 16:14 | NUR ---
SW faxed updates to [place].
--- NOTE | 2020-06-09 17:01 | NUR ---
ELIZABETH informed by NARA Lockhart that Dr. Figueroa has determined patient needs hospice. Pt's family was notified. ELIZABETH received a call from patient's , Mariah who made the following requests: 1) Can the airplane pilot crop dusting come see patient 2) They are considering a hospice facility for discharge but will not know if it is an option until sometime tomorrow (Wednesday) She did not want to disclose the name but stated it was affiliated with [facility]. 3) Don't speak to [facility] about pt's need for hospice until they sort out what they will do re: discharge placement ([facility] vs Hospice facility) 4) They want [facility] hospice to complete an eval prior to pt's discharge. 5) They need 2 doctor letters from stating he is at end of life in order to act out his wishes. ELIZABETH informed Mariah the tx team will be notified. SW team will continue to monitor.
[2020-06-09 19:55] VITALS: BP 109/81
--- NOTE | 2020-06-10 04:14 | NUR ---
Assumed care of patient this pm shift. Patient had a loose bowel movement 06/09/20 at the beginning of the shift. Patient occasionally talks to himself or his percieved audience. Takes medications crushed in pudding. Affect is blunted. Patient is non-ambulatory at this time and sits in a baljit chair. Assessment shows no signs of acute distress. Incontinent of bowel and bladder. Patient can be irritable with cares. No signs of pain. No signs of hi/si. We will continue to monitor per hospital policy.
[2020-06-10 05:53] LABS: HEMATOCRIT 39.3 % (42.0-52.0); HEMOGLOBIN 13.2 gm/dL (14.0-18.0); MCH 31.7 pg (26.0-34.0); MCHC 33.5 g/dL (28.0-37.0); MCV 94.6 fL (80.0-100.0); RBC 4.15 mil/uL (4.50-6.00); RDW 13.2 % (10.5-14.5); WBC 12.6 thou/uL (4.0-11.0)
[2020-06-10 05:58] LABS: CALCIUM 8.8 mg/dL (8.5-10.1); POTASSIUM 3.5 mmol/L (3.5-5.1)
[2020-06-10 08:57] VITALS: BP 149/67
--- NOTE | 2020-06-10 11:09 | NUR ---
combative with cares today-did allow shave-diarrhea stool x 3 so far this am-buttom appears exocriated-tender to touch,cleansed and barrier cream applplied as able during incontinent care-requires 3 staff to clean feces off of legs,torso as is combative and will strike out. took am meds crushed in ice cream. ultram 25mg given po prn at approx 1000 for neck pain as neck is bent to right and when attempted to sit straight or right arm neck area touched yelled out loudly in pain. analgesic cream applied prn at 1015-noted goof results as appears to rest quitly in gerichair after. did eat breakfast with assist.
--- NOTE | 2020-06-10 15:04 | NUR ---
DR FITZPATRICK ON UNIT AND INFORMED OF MULTIPLE BMS/LOOSE STOOLS SO FAR TODAY-NO NEW ORDERS RECIEVED. ULTRAM 25 MG PO PRN REPEATED AT 1500 FOR FACIAL GRIMACING NOTED WITH REPOSITIONING OR MOVEMENT OF UPPOER EXTREMETIES. WAFFLE CUSHION PLACED IN SEAT OF GERICHAIR TO NELP RELIEVE PRESSURE TO BONY PROMINANCE OF BOTTOM-ATTEMPTED TO REPOSITION IN RECLINING POSITION BUT EILL IMMEDITLY ROLL SIT SELF UP AND RESUME PREVIOUS POSITION.
--- NOTE | 2020-06-10 15:08 | NUR ---
ELIZABETH faxed referral to [facility] [phone]
--- NOTE | 2020-06-10 17:31 | NUR ---
Per family's request SW faxed a referral to [facility]
[2020-06-10 19:36] VITALS: BP 128/64
--- NOTE | 2020-06-11 06:19 | NUR ---
06-11-19 CARE TRANSFERRED 1900 OBSERVED PT SITTING IN DAVON CHAIR IN DAY ROOM. PT AAOX1, VSS, RR EVEN AND NONLABORED ON RA. PT DENIES SI/HI. DURING MEDICATION ADMIN PT HAD NO DIFFCULTIES. PT HAS SLIV IN LARM, CLEAN, DRY. PT QUINTIN-AIR HAS REDNESS ZERO SKIN BREAKDOWN. PT WAS PUT ON A BRIEF HOLIDAY DURING SLEEP HOURS, HAVE HAD 5 SMALL LOOSE STOOLS AND ONE LARGE VOID YELLOW ON CHUX. ZERO S/S OF ACUTE DISTRESS NOTED, WILL CONTINUE TO MONITOR PT PER [facility] PROTOCOL.
[2020-06-11 09:13] VITALS: BP 106/55
--- NOTE | 2020-06-11 10:01 | NUR ---
ELIZABETH spoke with Mariah concerning the denial from [facility]. Mariah stated she was very upset about the Denial. She stated her daughter and son are talking to Liv Hartley at [facility] concerning the matter. Mariah want to know if ELIZABETH had any influence over the decision and if ELIZABETH could talk to [facility]. ELIZABTEH stated that the decision is up to the facility and ELIZABETH has no influence over the matter. Mariah discussed her conversation with Dr. Olmos on 06/10/2019. Mariah stated she would call ELIZABETH by noon concerning Pt returning to [facility].
[2020-06-11 10:36] VITALS: BP 106/55
--- NOTE | 2020-06-11 11:00 | NUR ---
Elizabeth recieved a call from Laurie Mac, at [facility], concerning the Pt. Elizabeth informed Mariah has requested Elizabeth not to give any information to [facility] at this time concerning the Pt. [facility] stated she would call [facility] today and get back with ELIZABETH by noon. Laurie stated [facility] can take the Pt back on or but will wait for Mariah's call to schedule a date and time.
--- NOTE | 2020-06-11 11:59 | NUR ---
1155 RESUMMED CARE FROM OVERNIGHT SHIFT THIS AM, PATIENT IN ROOM ASLEEP IN BED. PATIENT IS NON VERBAL AND CANNOT TELL ME ABOUT SI/HI/AH/VH AT PRESENT. PATIENT HAS DEMENTIA AND HAS COGNITIVE DO PATIENT ABDOMEN FLAT BOWEL SOUNDS PRESENT. PATIENTS LUNGS CLEAR PATIENT IS NOT EATING OR DRINKING A LOT DESPITE TRYING TO ENCOURAGE FLUIDS. WILL CONTINUE TO MONITOR PATIENT FOR SAFETY AND BEHAVIORS.
--- NOTE | 2020-06-11 12:50 | NUR ---
ELIZABETH called Laurie at [facility] and scheduled d/c for 06/12/2019 @1100 am. [facility] has accepted the Pt for hospice. Pt will be transported via [facility].
--- NOTE | 2020-06-11 16:40 | NUR ---
ELIZABETH faxed incapacitaion letter to Mariah at [email or web address]
[2020-06-11] MEDS ORDERED: BENADRYL ALLERG25 MG PO (17:25)
[2020-06-11] MEDS ORDERED: FLOMAX0.4 MG PO (17:25)
[2020-06-11] MEDS ORDERED: LORAZEPAM 1 MG T1 MG PO ×2 (17:25)
[2020-06-11] MEDS ORDERED: TRAZODONE HCL100 MG PO (17:25)
[2020-06-11] MEDS ORDERED: SEROQUEL 100 M100 M1 PO (17:25)
[2020-06-11] MEDS ORDERED: LEVOFLOXACIN500 MG PO (17:25)
[2020-06-11] MEDS ORDERED: MELATONIN5 MG SUBLING (17:27)
[2020-06-11] MEDS ORDERED: TRAMADOL 50 MG50 MG PO (18:41)
[2020-06-11 19:20] VITALS: BP 115/62
--- NOTE | 2020-06-12 06:08 | NUR ---
ASSUMED PT'S CARE BEGINNING PF THIS PM SHIFT. PT WAS IN HIS ROOM LAYING DOWN. DID ATTMEPT TO GET OUT OF BED FEW TIMES THIS SHIFT. NURSING ASSISTED IN SETTLING PT BACK INTO BED. PT TOOK MEDS CRUSHED IN YOGUHRT. PT HAD REST OF YOGHURT. PT HAD 2 SMALL BMs THIS SHIFT. INCONTINENT OF BOWEL AND BLADDER. REYES IV PULLED OUT FROM PT. UNSURE HOW IT CAME OFF. PT SLEPT WELL THIS SHIFT. FALL PRECAUTION REMAINS IN PLACE. WILL CONTINUE TO MONITOR.
--- NOTE | 2020-06-12 07:53 | NUR ---
REPORT CALLED TO [facility]-SHE REPORTS CONCERN REGARDING RECENT MULTIPLE DIARRHEA STOOLS-REQUESTING STOOL BE TESTED FOR C-DIFF. DR FITZPATRICK CONTACTED FOR ORDER
[2020-06-12 08:53] VITALS: BP 108/73
--- NOTE | 2020-06-12 13:44 | NUR ---
UP IN GERICHAIR FOR BREAKFAST THIS AM-DID EAT APPROX 40 PERCENT OF MEAL WITH FEEDING BY STAFF. RESTLESS AT TIMES SWINGING LEGS OVER SIDE OF GERICHAIR AND MUMBLING INCOHERENTLY TO SELF. LORAZEPAM 1MG AND ULTRAM 25 MG CRUSHED AND GIVEN PO PRN FOR INCREASED RESTLESSNESS AND FACIAL GRIMACING WITH MOVEMENT WHEN RIGHT NECK AND SHOULDER AREA TOUCHED WILL YELL OUT IN PAIN-HEAD LEANING TO RIGHT. INCONTINENT OF LARGE LOOSE BM THIS AM -PERINEAL AREA NOTED TO BE EXCORIATED AND TENDER TO TOUCH-YELLING OUT WHEN WIPED STATING "IT AGGARWAL,IT AGGARWAL" SOME MILD AGITATION DURING INCONTINENT CARE GRABBING STAFFS HANDS AND ATTEMPTING TO TWIST. REPORT GIVEN TO ELAINE AT [facility] RESIDENTIAL AT APPROX 0800. MERLE MALCOLM CONTACTED VIA PHONE AND DC INSTRUCTIONS REVIEWED-[employer] DC PAPERWORK REVIWED VIA PHONE WITH [employer]. DISCHARGED AT APPROX 1110 ON [facility]. IS AWAKE AND ALERT AT TIME OF DC.
== END 2020-06-12 11:15 | disposition hospice, home (50) | DRG 57 ==
LOC: SBH
PROVIDERS: Hospitalist; Nurse Practitioner; Nurse Practitioner Family; Psychiatry & Neurology Psychiatry; ADMIT Psychiatry & Neurology Psychiatry; ATTEND Psychiatry & Neurology Psychiatry
DX: G30.9 Alzheimer's disease, unspecified (principal); F02.81 Dementia in other diseases classified elsewhere, unspecified severity, with behavioral disturbance; E87.0 Hyperosmolality and hypernatremia; N39.0 Urinary tract infection, site not specified; F01.51 Vascular dementia, unspecified severity, with behavioral disturbance; F41.9 Anxiety disorder, unspecified; I10 Essential (primary) hypertension; G47.00 Insomnia, unspecified; K59.00 Constipation, unspecified; Z20.822 Contact with and (suspected) exposure to COVID-19
CPT/HCPCS: 10880